=== PATIENT | female | born 1985 | race Caucasian/White ===

== ENCOUNTER 2017-10-24 14:01 | Emergency (ER) | payer OTHER ==
[2017-10-24] MEDS ORDERED: ONDANSETRON *ODT* 4 MG TABLET SL ONE (14:21)
[2017-10-24] MEDS ORDERED: ACETAMINOPHEN 500 MG TABLET (FP) PO ONE (14:23)
--- NOTE | 2017-10-24 14:33 | PDOC ---
History of Present Illness - General Stated Complaint: FEVER Time Seen by Provider: 10/24/17 14:20 Past History - Past Medical History Allergies/Adverse Reactions: Allergies Allergy/AdvReac Type Severity Reaction Status Date / Time No Known Allergies Allergy Verified 10/24/17 14:43 Home Medications: Ambulatory Orders Ibuprofen [Motrin -] 600 mg PO TID PRN #10 tablet 10/24/17 Oseltamivir Phosphate [Tamiflu] 75 mg PO BID #10 capsule 10/24/17 Asthma: No Cancer: No Cardiac Disorders: No Diabetes: No HTN: No Seizures: No Thyroid Disease: No - Reproductive History (#): 2 Para: 1 Spontaneous : 0 - Suicide/Smoking/Psychosocial Hx Smoking History: Never smoked Have you smoked in the past 12 months: No Hx Alcohol Use: No Drug/Substance Use Hx: No Substance Use Type: None Hx Substance Use Treatment: No Medical Decision Making - Medical Decision Making 10/24/17 17:45 31-year-old female presents to the emergency Department with fever, sore throat and vomiting. Vitals initially with fever and tachycardia. Exam with mild tonsillar exudate and erythema, tachycardia, but otherwise normal. After Tylenol and Motrin, vitals normalized. Patient also received Zofran and has been tolerating PO. Strep test was negative. Patient likely has the flu, or other viral syndrome given daughter has similar symptoms at home. Will treat with Tamiflu. Patient does not have a primary doctor, will refer her to our walk -in clinic. Pt feels better, is clinically stable. REquests DC home. I discussed the physical exam findings, ancillary test results and final diagnoses with the patient. I answered all of the patient's questions. The patient was satisfied with the care received and felt comfortable with the discharge plan and treatment plan. The patient will call their primary care physician within 24 hours to arrange follow-up and will return to the Emergency Department with any new, persistent or worsening symptoms. *DC/Admit/Observation/Transfer Diagnosis at time of Disposition: Viral syndrome - Discharge Dispostion Disposition: HOME Condition at time of disposition: Stable Admit: No - Prescriptions Prescriptions: Ibuprofen [Motrin -] 600 mg PO TID PRN #10 tablet PRN Reason: Pain Oseltamivir Phosphate [Tamiflu] 75 mg PO BID #10 capsule - Referrals Referrals: Fredy Corbett MD [Staff Physician] - - Patient Instructions Printed Discharge Instructions: DI for Viral Syndrome Additional Instructions: As discussed, follow-up with 's office within 1 week to establish care with a primary doctor. Call tomorrow for an appointment. Drink plenty of fluids and stay hydrated. Take Motrin if you have a fever. Return to the emergency department if you have any new, worsening or concerning symptoms. - Post Discharge Activity Forms/Work/School Notes: Back to Work - Attestations Physician Attestion: 10/24/17 17:51 I, Dr. Ellen Major MD, attest that this document has been prepared under my direction and personally reviewed by me in its entirety. I further attest, that it accurately reflects all work, treatment, procedures and medical decision -making performed by me.
[2017-10-24 14:46] VITALS: BMI 19.7
[2017-10-24] MEDS ORDERED: IBUPROFEN 600 MG TABLET (FP) PO ONE ×2 (14:47→15:12)
[2017-10-24] MEDS ORDERED: ACETAMINOPHEN 325 MG TABLET (FP) ONE (14:48)
[2017-10-24] MEDS ORDERED: ONDANSETRON *ODT* 4 MG TABLET ONE (14:49)
[2017-10-24 15:08] LABS: PH,URINE 5.5 (4.5-8); URINE APPEARANCE Clear; URINE BILIRUBIN 1+ (NEGATIVE); URINE GLUCOSE (UA) Negative (NEGATIVE); URINE KETONE 4+ (NEGATIVE); URINE LEUK ESTERASE Negative (NEGATIVE); URINE NITRITE Negative (NEGATIVE); URINE UROBILINOGEN 0.2 (0.2-1.0)
[2017-10-24 15:12] LABS: URINE BLOOD 1+ (NEGATIVE); URINE COLOR YELLOW; URINE PROTEIN 1+ (NEGATIVE)
[2017-10-24 15:17] LABS: EPI CELLS MODERATE /HPF; URINE BACTERIA NONE SEEN /hpf (NEGATIVE); URINE WBC 0-3 (0-5)
[2017-10-24 17:37] VITALS: BP 101/69; PULSE 98; TEMP 98.5
== END 2017-10-24 18:06 | disposition home or self-care (01) ==
LOC: FER 14:01
DX: B34.9 Viral infection, unspecified (principal)
CPT/HCPCS: 81003; 81015; 84703; 87070; 87086; 87430; 99281-25; Q0162

== ENCOUNTER 2020-11-28 04:06 | Day surgery (SDC) | payer OTHER ==
[2020-11-28 11:20] VITALS: BMI 21.9
[2020-11-28] MEDS ORDERED: PROPOFOL 20 ML ONE ×2 (13:36)
[2020-11-28] MEDS ORDERED: ROCURONIUM BROMIDE 50 MG/5 ML SYRINGE ONE (13:36)
[2020-11-28] MEDS ORDERED: MIDAZOLAM HCL 2 MG/2 ML SINGLE DOSE VIAL ONE (13:36)
[2020-11-28] MEDS ORDERED: BUPIVACAINE HCL/PF 0.5% (5MG/ML) 10 ML VIAL IJ ONE (14:09)
[2020-11-28] MEDS ORDERED: LIDOCAINE HCL/PF 2% SDV 5ML VIAL ONE (14:12)
[2020-11-28] MEDS ORDERED: DEXAMETHASONE SOD PHOSPHATE 4 MG/1 ML VIAL ONE (14:19)
[2020-11-28] MEDS ORDERED: ONDANSETRON 4 MG/2 ML VIAL ONE (14:19)
[2020-11-28] MEDS ORDERED: GLYCOPYRROLATE 0.2 MG/1 ML VIAL ONE (14:33)
[2020-11-28] MEDS ORDERED: NEOSTIGMINE METHYLSULFATE 0.5 MG/1 ML - 10 ML MDV ONE (14:33)
[2020-11-28] MEDS ORDERED: KETOROLAC TROMETHAMINE 30 MG/1 ML VIAL ONE (14:39)
[2020-11-28] MEDS ORDERED: PROMETHAZINE HCL 25 MG/1 ML VIAL IVPB PRN (14:54)
[2020-11-28] MEDS ORDERED: ONDANSETRON 4 MG/2 ML VIAL IVPUSH PRN (14:54)
[2020-11-28] MEDS ORDERED: oxyCODONE HCL 5 MG TABLET PO PRN (14:54)
[2020-11-28] MEDS ORDERED: LACTATED RINGERS SOLUTION 1,000 ML IV SCH (15:00)
[2020-11-28 17:54] VITALS: BP 131/88; PULSE 90; TEMP 97.8
== END 2020-11-28 17:30 | disposition home or self-care (01) ==
LOC: JASU-SURG 04:06
PROVIDERS: ATTEND Obstetrics & Gynecology
PROC: 0UT74ZZ Resection of Bilateral Fallopian Tubes, Percutaneous Endoscopic Approach (ICD-10-PCS; principal; 2020-11-28 13:30)
DX: Z30.2 Encounter for sterilization (principal)
CPT/HCPCS: 81025; 88302-TC; 94760